=== PATIENT | male | born 1960 | race Caucasian/White ===

== ENCOUNTER → 2023-05-07 | Outpatient (CLI) | payer BC | LOC: M WUC 15:08 | PROVIDERS: ATTEND Internal Medicine | DX: R05.9 Cough, unspecified (principal) ==

== ENCOUNTER → 2023-05-17 | Outpatient (REF) | payer BC | LOC: M LAB REF 11:50 | PROVIDERS: ATTEND Internal Medicine | DX: Z01.818 Encounter for other preprocedural examination (principal) ==

== ENCOUNTER → 2023-05-24 | Day surgery (SDC) | payer BC ==
[~2023-05-24] VITALS: Ht 170.2 cm; Wt 95.7 kg
[~2023-05-24] MED LIST: ACETAMINOPHEN 1000MG 100ML IV BAG As Ordered ONE; BACITRACIN OINTMENT 30GM TUBE As Ordered ONE; CARB-113 PO; HYDROMORPHONE HCL 0.5 MG/ 0.5 ML SYRINGE IV PRN; LIDOCAINE 1% SDV 30ML VIAL As Ordered ONE; LIDOCAINE 2% 100MG/5ML SDV (FOR ANES.) As Ordered ONE; LR 1,000 ML IV SCH; MIDAZOLAM INJ 2MG/2ML VIAL As Ordered ONE; ONDANSETRON 4MG 2ML VIAL As Ordered ONE; ONDANSETRON 4MG 2ML VIAL IV PRN; OXYC1TAB23 PO; PERCOCET 5MG/325MG TAB PO PRN; PHENYLephrine 500MCG 5ML (100MCG/ML) SYRINGE As Ordered ONE; TREL1AER IN; ceFAZolin SOD 2 GM in IV 1 EA IV ONE; fentaNYL 100 MCG/2 ML INJECTION IV PRN; fentaNYL 250 MCG/5 ML INJECTION As Ordered ONE; oxyCODONE 5MG TAB PO PRN; propofoL 200 MG/20 ML VIAL As Ordered ONE
[2023-05-24 11:40] VITALS: BP 157/85; TEMP 98.2; O2SAT 96
== END | disposition home or self-care (01) ==
LOC: M SDC 06:16 → EDUNIT# 07:30
PROVIDERS: ATTEND Urology
DX: N43.3 Hydrocele, unspecified (principal); I10 Essential (primary) hypertension; K21.9 Gastro-esophageal reflux disease without esophagitis; K44.9 Diaphragmatic hernia without obstruction or gangrene; G20.C Parkinsonism, unspecified; J44.9 Chronic obstructive pulmonary disease, unspecified; G47.33 Obstructive sleep apnea (adult) (pediatric); Z87.891 Personal history of nicotine dependence; Z79.899 Other long term (current) drug therapy
CPT/HCPCS: 54840; 55040; 88302; 88305; J0131; J0665; J0690; J1100; J2250; J2371; J2405; J3010